=== PATIENT | female | born 1960 | race Two or more races ===

== ENCOUNTER 2017-02-18 09:54 | Emergency (ER) | payer SELFPAY ==
[~2017-02-18] VITALS: Ht 160 cm; Wt 95.3 kg
[2017-02-18 10:32] VITALS: BP 146/92
[2017-02-18] MEDS ORDERED: cefTRIAXone SOD 1,000 MG VL IM ONE (10:45)
[2017-02-18] MEDS ORDERED: TETANUS-DIPTH-ACEL PERTUSSIS 0.5ML SYRG IM ONE (10:45)
[2017-02-18] MEDS ORDERED: HYDROcodone-ACET 10/325MG TAB PO ONE (11:00)
[2017-02-18] MEDS ORDERED: NEOMYCIN-BACITRACIN-POLYM UNITDOSE PKG TOP OINT TOP ONE (12:00)
== END 2017-02-18 12:08 | disposition home or self-care (01) ==
LOC: ER 09:54
DX: S61.230A Puncture wound without foreign body of right index finger without damage to nail, initial encounter (principal); S60.221A Contusion of right hand, initial encounter; Z23 Encounter for immunization; W55.32XA Struck by other hoof stock, initial encounter; Y99.8 Other external cause status; Y93.89 Activity, other specified; Y92.89 Other specified places as the place of occurrence of the external cause
CPT/HCPCS: 73130; 90471; 90715; 96372; 99284; J0696

== ENCOUNTER 2017-02-19 07:53 | Emergency (ER) | payer SELFPAY ==
[~2017-02-19] VITALS: Ht 160 cm; Wt 95.3 kg
[2017-02-19 08:06] VITALS: BP 127/78
[2017-02-19] MEDS ORDERED: cefTRIAXone SOD 1,000 MG VL ONE (08:29)
[2017-02-19] MEDS ORDERED: cefTRIAXone SOD 1,000 MG VL IM ONE (08:30)
== END 2017-02-19 08:57 | disposition home or self-care (01) ==
LOC: ER 07:53
DX: S61.239D Puncture wound without foreign body of unspecified finger without damage to nail, subsequent encounter (principal); S60.00XD Contusion of unspecified finger without damage to nail, subsequent encounter
CPT/HCPCS: 96372; 99283; J0696

== ENCOUNTER 2025-04-21 08:14 | Emergency (ER) | payer OTHER, MEDICAID ==
[~2025-04-21] VITALS: Ht 160 cm; Wt 87.0 kg
--- NOTE | 2025-04-21 08:43 | ED.PDOC ---
History of Present Illness HPI Comments A 65 YEAR OLD FEMALE PRESENTS TO THE ED WITH COMPLAINT OF BODY PAIN. PATIENT STATES THAT SHE HAS BODY PAIN, A HEADACHE, ABDOMEN CRAMPS, AND NAUSEA. PATIENT REPORTS HER PAIN A /10. PATIENT IS NOT ACTIVELY VOMITING IN TRIAGE. PT STATES HER MAJOR C/O IS HEADACHE WITH PRESSURE FOR 3 DAYS. PATIENT DENIES FEVER, CHILLS, SHORTNESS OF BREATH, CHEST PAIN, VOMITING, DIARRHEA OR OTHER COMPLAINTS. NO OTHER SYMPTOMS OR MODIFYING FACTORS AT THIS TIME. PATIENT IS ALERT, ORIENTED X 4, AND HAS STEADY GAIT. NO OTHER SYMPTOMS REPORTED AT THIS TIME OF CARE. Chief Complaint: Body Pain Time Seen by MD: 08:31 Primary Care Provider: MARTHA RIVER Reviewed Notes: Nurses Notes, Medications, Allergies Allergies: Coded Allergies: NO KNOWN ALLERGIES (Unverified , 02/19/17) Home Meds Active Scripts Levofloxacin Hemihydrate (LEVAQUIN 500 MG) 500 Mg Tab, 1 TAB PO DAILY, #10 TAB Prov:NITIN DAVIS 04/21/25 Omeprazole (Prilosec Susp (For Gt)) 20 Mg Ss, 40 MG PO DAILY, #20 TAB Prov:NITIN DAVIS 04/21/25 Acetaminophen (Tylenol 8 Hour Arthritis) 650 Mg Tab, 650 MG PO TID, #30 TAB Prov:NITIN DAVIS 04/21/25 Information Source: Patient Mode of Arrival: Ambulatory Severity: Mild, Moderate Timing: Days Duration: Since onset Prehospital treatment: None Medication Refill: For: Other (HEADACHE, NAUSEA AND EPIGASTRIC CRAMPS. 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 SALES REPRESENTATIVE History: No Pertinent ROUTE SALES REPRESENTATIVE History Family History Family History: Unknown Social History Smoker: Non-Smoker Alcohol: Denies ETOH Use Drugs: Denies Drug Use Lives In: Home Constitutional: reports: others (ANXIOUS); denies: chills, diaphoresis, fatigue, fever, malaise, sweats, weakness EENTM: reports: nose congestion; denies: blurred vision, double vision, ear bleeding, ear discharge, ear drainage, ear pain, ear ringing, eye pain, eye redness, hearing loss, mouth pain, mouth swelling, nasal discharge, nose bleeding, nose pain, photophobia, tearing, throat pain, throat swelling, voice changes, others Respiratory: denies: cough, hemoptysis, orthopnea, SOB at rest, shortness of breath, SOB with excertion, stridor, wheezing, others Cardiovascular: denies: chest pain, dizzy spells, diaphoresis, Dyspnea on exertion, edema, irregular heart beat, left arm pain, lightheadedness, palpitations, PND, syncope, others Gastrointestinal: reports: abdominal pain; denies: abdomen distended, blood streaked bowels, constipated, diarrhea, dysphagia, difficulty swallowing, hematemesis, melena, nausea, poor appetite, poor fluid intake, rectal bleeding, rectal pain, vomiting, others Genitourinary: denies: abnormal vagina bleeding, burning, dyspareunia, dysuria, flank pain, frequency, hematuria, incontinence, pain, , vagina discharge, urgency, others Neurological: reports: headache; denies: dizziness, fainting, left sided num bness, left sided weakness, numbness, paresthesia, pre-existing deficit, right sided numbness, right sided weakness, seizure, speech problems, tingling, tremors, weakness, others Musculoskeletal: denies: back pain, gout, joint pain, joint swelling, muscle pain, muscle stiffness, neck pain, others Integumetry: denies: bruises, change in color, change in hair/nails, dryness, laceration, lesions, lumps, rash, wounds, others Allergic/Immunocompromised: denies: Difficulty Healing, Frequent Infections, Hives, Itching, others Hematologic/Lymphatic: denies: anemia, blood clots, easy bleeding, easy bruising, swollen glands, others Endocrine: denies: excessive hunger, excessive sweating, excessive thirst, excessive urination, flushing, intolerance to cold, intolerance to heat, unexplained weight gain, unexplained weight loss, others Psychiatric: reports: anxiety; denies: bipolar disorder, depression, hopeless, panic disorder, schizophrenia, sleepless, suicidal, others All Other Systems: Reviewed and Negative Physical Exam General Appearance: Mild Distress, Other (ANXIOUS ) HEENT: Normal ENT Inspection, PERRL/EOMI, Pharynx Normal, Sinuses (TENDERNESS ON RIGHT MAXILLARY SINUES WITH POST NASAL DRIP. ), TMs Normal Neck: Full Range of Motion, Non-Tender, Normal, Normal Inspection Respiratory: Chest Non-Tender, Lungs Clear, No Accessory Muscle Use, No Respiratory Distress, Normal Breath Sounds Cardiovascular: No Edema, No JVD, No Murmur, No Gallop, Normal Peripheral Pulses, Regular Rate/Rhythm Breast Exam: Deferred Gastrointestinal: No Organomegaly, Non Tender, No Pulsatile Mass, Normal Bowel Sounds, Soft Genitalia: Deferred Pelvic: Deferred Rectal: Deferred Extremities: No calf tenderness, Normal capillary refill, Normal inspection, Normal range of motion, Non-tender, No pedal edema Musculoskeletal : Apperance: Normal Neurologic: Alert, 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 Was a procedure done?: No Differential Dx Considerations may include: ACUTE SINUSITIS, SINUSES HEADACHE, BRAIN MASS, UTI X-Ray, Labs, Meds, VS Vital Signs Date Time Temp Pulse Resp B/P (MAP) Pulse Ox O2 Delivery O2 Flow Rate FiO2 04/21/25 08:22 98.9 98 18 122/75 98 98.9 Lab Test 04/21/25 09:00 04/21/25 08:39 Range/Units White Blood Count 11.9 H 4.4-10.8 10^3/uL Red Blood Count 4.60 4.0-5.20 10^6/uL Hemoglobin 13.9 12.2-16.2 g/dL Hematocrit 41.4 36.0-46.0 % Mean Corpuscular Volume 90.0 80.0-100.0 fL Mean Corpuscular Hemoglobin 30.2 28.0-32.0 pg Mean Corpuscular Hemoglobin Concent 33.6 32.0-36.0 g/dL Red Cell Distribution Width 13.7 11.8-14.3 % Platelet Count 220 140-450 10^3/uL Mean Platelet Volume 9.5 6.9-10.8 fL Neutrophils (%) (Auto) 87.2 H 37.0-80.0 % Lymphocytes (%) (Auto) 4.4 L 10.0-50.0 % Monocytes (%) (Auto) 8.1 0.0-12.0 % Eosinophils (%) (Auto) 0.0 0.0-7.0 % Basophils (%) (Auto) 0.3 0.0-2.0 % Neutrophils # (Auto) 10.3 H 1.6-8.6 10 ^3/uL Lymphocytes # (Auto) 0.5 0.4-5.4 10 ^3/uL Monocytes # (Auto) 1.0 0-1.3 10 ^3/uL Eosinophils # (Auto) 0 0-0.8 10 ^3/uL Basophils # (Auto) 0 0-0.2 10 ^3/uL Nucleated Red Blood Cells 0.0 % Sodium Level 137 136-145 mmol/L Potassium Level 3.6 3.5-5.1 mmol/L Chloride Level 103 98-107 mmol/L Carbon Dioxide Level 23 20-31 mmol/L Anion Gap 11 5-15 Blood Urea Nitrogen 11 9-23 mg/dL Creatinine 0.75 0.550-1.02 mg/dL Glomerular Filtration Rate Calc 88 >90 mL/min BUN/Creatinine Ratio 14.7 10.0-20.0 Serum Glucose 139 H 74-106 mg/dL Calcium Level 9.4 8.7-10.4 mg/dL Total Bilirubin 1.0 0.2-1.0 mg/dL Aspartate Amino Transferase (AST) 57 H 13-40 U/L Alanine Aminotransferase (ALT) 75 H 7-40 U/L Alkaline Phosphatase 168 H 46-116 U/L Troponin I High Sensitivity < 3 L </=34 ng/L Total Protein 7.0 5.7-8.2 g/dL Albumin 4.4 3.2-4.8 g/dL Lipase 39 12-53 U/L Urine Color Light-yellow Yellow Urine Clarity Clear Clear Urine pH 5.5 5.0-9.0 Urine Specific Roby 1.030 1.001-1.035 Urine Protein Negative Negative Urine Ketones 2+ H Negative Urine Blood 2+ H Negative /uL Urine Nitrite 2+ H Negative Urine Bilirubin Negative Negative Urine Urobilinogen Normal Negative mg/dL Urine Leukocyte Esterase 1+ Negative /uL Urine RBC 4 0 - 4 /hpf Urine Microscopic WBC 25 H 0-5 /HPF Urine Squamous Epithelial Cells Few <5 /hpf Urine Bacteria Few H None Seen /hpf Urine Mucus Few None Seen Urine Glucose 4+ H Normal mg/dL Current Medications Medications (Trade) Dose Ordered Sig/Araceli Route Start Time Stop Time Status Last Admin Ketorolac Tromethamine (Toradol Injection) 60 mg ONCE ONCE IM 04/21/25 11:00 04/21/25 11:01 DC 04/21/25 11:02 PATIENT: CARLOTA SAPPCCT: [id number]: [id number] : 1960 LOC: ER ROOM / BED: / AGE / SEX: 65 / F ADM STATUS: REG ER SERVICE ORDERING PHYSICIAN: NITIN DAVIS PROCEDURE(s): HWOCT - HEAD WITHOUT CONTRAST REASON: HEADACHE ORDER NUMBER(s): [id number], ACCESSION NUMBER(s): [id number] EXAM: CT HEAD WITHOUT CONTRAST HISTORY: HEADACHE 65-year-old female with severe headache for 3 days, history of hypertension. COMPARISON: None TECHNIQUE: Noncontrast axial CT images of the head were performed. Sagittal and coronal reformatted images were obtained. This CT exam was performed using 1 or more of the following dose reduction techniques: Automated exposure control, adjustment of the mA and/or kv according to patient size, or the use of iterative reconstruction techniques. Radiation Dose: CTDI volume is 48.78 mGy. Dose-length product is 780.49 mGy*cm FINDINGS: No intracranial hemorrhage, mass, midline shift, hydrocephalus, or evidence of acute large vessel infarct. There is mild mucosal thickening of the left ethmoid air cells. The bilateral mastoid air cells and middle ear spaces are clear. No cranial fracture or scalp edema. IMPRESSION: 1. No acute intracranial process. 2. Mild left ethmoid sinus disease. ATED BY: MONTSE FERRELL MD DICTATED DATE/TIME: 04/21/25924 SIGNED BY: MONTSE FERRELL MD SIGNED DATE/TIME: 04/21/25924 CC: X-Ray, Labs, Meds, VS Comment EXTERNAL MEDICAL RECORDS REVIEWED: [NONE] INDEPENDENT HISTORIANS: [NONE] SOCIAL DETERMINANTS OF HEALTH: [NONE] LABS ORDERED: NONE REVIEWED AND INTERPRETED RESULTS: NONE IMAGING ORDERED: HEAD CT TREATMENTS ORDERED: TORADOL 60MG IM PROCEDURES PERFORMED: NONE CRITICAL CARE TIME: NONE I HAVE DISCUSSED THE PATIENT WITH THE ATTENDING PHYSICIAN DR. HARRIS AND HE AGREES WITH THE PATIENT'S PLAN OF CARE AND DISPOSITION. BASED ON HISTORY OF PRESENT ILLNESS, AND PHYSICAL EXAM, PATIENT WILL BE DISCHARGED HOME. DISCUSSED PLAN FOR DISCHARGE HOME WITH RX [LEVAQUIN, TYLENOL AND PRILOSEC]. MEDICATION WARNINGS GIVEN. SHARED DECISION MAKING: DISCUSSED WITH PATIENT THAT THEIR WORKUP WAS NORMAL. PATIENT INSTRUCTED TO FOLLOW UP WITH PRIMARY CARE PROVIDER IN 1-2 DAYS FOR RE- EVALUATION OF SYMPTOMS. PATIENT VERBALIZES UNDERSTANDING TO RETURN TO ED FOR NEW OR WORSENING SYMPTOMS OR IF FOLLOW UP WITH PCP CANNOT BE OBTAINED. PATIENT FEELS COMFORTABLE GOING HOME AT THIS TIME. ALL QUESTIONS ADDRESSED AT TIME OF DISCHARGE. Time of 1ST Reevaluation: 11:20 Reevaluation 1ST: Improved Patient Education/Counseling: Diagnosis, Treatment, Need For Follow Up Family Education/Counseling: Diagnosis, Treatment, No Family Present Medical Screening: No EMC Exist At This Time SEPSIS Sepsis Screen Date sepsis recognized/suspect: Apr 21, 2025 Time Sepsis recognized/suspect: 821 Recent Procedure: No On Antibiotic Therapy: No Respiratory Rate >20: No Heart Rate >90: No Temp<36 C (96.8 F) or >38.3 C: No SBP <90 or MAP <65 mmHG: No New Acute Mental Status Change: No Is the patient on CPAP, BIPAP,: No Physician Orders Head Without Contrast (04/21/25 08:39) Vital Signs Date Time Temp Pulse Resp B/P (MAP) Pulse Ox O2 Delivery O2 Flow Rate FiO2 04/21/25 08:22 98.9 98 18 122/75 98 98.9 Laboratory Tests Test 04/21/25 09:00 White Blood Count 11.9 10^3/uL (4.4-10.8) H Medications Medications Dose Ordered Sig/Araceli Route Start Time Stop Time Status Last Admin Dose Admin Ketorolac Tromethamine 60 mg ONCE ONCE IM 04/21/25 11:00 04/21/25 11:01 DC 04/21/25 11:02 Departure 1 Departure Time of Disposition: 11:20 Impression: Primary Impression: Acute sinusitis Qualified Codes: J01.20 - Acute ethmoidal sinusitis, unspecified Additional Impression: Acute cystitis Qualified Codes: N30.00 - Acute cystitis without hematuria Disposition: 01 HOME / SELF CARE / HOMELESS Condition: Stable Additional Instructions: F/U PCP IN 2 DAYS RECHECK. IF CONDITION BECOME WORSE, RETURN TO ED [place]. e-Prescriptions Levofloxacin Hemihydrate (LEVAQUIN 500 MG) 500 Mg Tab 1 TAB PO DAILY, #10 TAB Prov: NITIN DAVIS 04/21/25 Omeprazole (Prilosec Susp (For Gt)) 20 Mg Ss 40 MG PO DAILY, #20 TAB Prov: NITIN DAVIS 04/21/25 Acetaminophen (Tylenol 8 Hour Arthritis) 650 Mg Tab 650 MG PO TID, #30 TAB Prov: NITIN DAVIS 04/21/25 Discharged With: Self Critical Care Note Critical Care Time?: No Stability Stability form required: No I personally scribed for NITIN DAVIS ([email or web address]) on 04/21/25 at 08:43. Electronically submitted by Freddie Potter ([email or web address]). I personally scribed for NITIN DAVIS ([email or web address]) on 04/21/25 at 11:03. Electronically submitted by Freddie Potter [email or web address]). NITIN DAVIS Apr 21, 2025 08:43
[2025-04-21 09:09] LABS: Hematocrit 41.4 % (36.0-46.0); Hemoglobin 13.9 g/dL (12.2-16.2); Mean Corpuscular Hemoglobin 30.2 pg (28.0-32.0); Mean Corpuscular Volume 90.0 fL (80.0-100.0); Nucleated Red Blood Cells % 0.0 %
--- NOTE | 2025-04-21 09:27 | DVH ---
EXAM: CT HEAD WITHOUT CONTRAST HISTORY: HEADACHE 65-year-old female with severe headache for 3 days, history of hypertension. COMPARISON: None TECHNIQUE: Noncontrast axial CT images of the head were performed. Sagittal and coronal reformatted i mages were obtained. This CT exam was performed using 1 or more of the following dose reduction techn iques: Automated exposure control, adjustment of the mA and/or kv according to patient size, or the u se of iterative reconstruction techniques. Radiation Dose: CTDI volume is 48.78 mGy. Dose-length product is 780.49 mGy*cm FINDINGS: No intracranial hemorrhage, mass, midline shift, hydrocephalus, or evidence of acute large vessel inf arct. There is mild mucosal thickening of the left ethmoid air cells. The bilateral mastoid air cells and middle ear spaces are clear. No cranial fracture or scalp edema. IMPRESSION: 1. No acute intracranial process. 2. Mild left ethmoid sinus disease.
[2025-04-21 09:30] LABS: Alanine Aminotransferase 75 U/L (7-40); Albumin 4.4 g/dL (3.2-4.8); Alkaline Phosphatase 168 U/L (46-116); Anion Gap 11 (5-15); BUN/Creatinine Ratio 14.7 (10.0-20.0); Blood Urea Nitrogen 11 mg/dL (9-23); Calcium 9.4 mg/dL (8.7-10.4); Carbon Dioxide 23 mmol/L (20-31); Chloride 103 mmol/L (98-107); Glucose 139 mg/dL (74-106); Potassium 3.6 mmol/L (3.5-5.1); Sodium 137 mmol/L (136-145); Total Protein 7.0 g/dL (5.7-8.2)
[2025-04-21 09:31] LABS: Bilirubin, Total 1.0 mg/dL (0.2-1.0)
[2025-04-21 09:54] LABS: Lipase 39 U/L (12-53)
[2025-04-21 10:39] LABS: Urine Protein, UAD Negative (Negative)
[2025-04-21] MEDS ORDERED: LEVO500T91 PO (11:01)
[2025-04-21] MEDS ORDERED: ACET-1080 PO (11:01)
[2025-04-21] MEDS ORDERED: OME20GT PO (11:01)
[2025-04-21] MEDS: KETOROLAC TROMETH 60MG/2ML VIAL IM ONE (11:02)
[2025-04-21 11:10] VITALS: BP 129/46; PULSE 98; RESP 19; TEMP 99.4; O2SAT 99
== END 2025-04-21 11:12 | disposition home or self-care (01) ==
LOC: ER 08:14
DX: J01.90 Acute sinusitis, unspecified (principal); N30.00 Acute cystitis without hematuria; F41.9 Anxiety disorder, unspecified; E11.9 Type 2 diabetes mellitus without complications; I10 Essential (primary) hypertension; E78.5 Hyperlipidemia, unspecified; Z90.49 Acquired absence of other specified parts of digestive tract; Z79.899 Other long term (current) drug therapy
CPT/HCPCS: 36415; 70450; 80053; 81001; 82947; 83690; 84484; 85025; 96372; 99285; J1885

== ENCOUNTER 2025-04-21 21:11 | Emergency (ER) | payer OTHER, MEDICAID ==
[~2025-04-21] VITALS: Ht 160 cm; Wt 87.0 kg
[~2025-04-21 21:11] MED LIST: ACET-1080 PO; LEVO500T91 PO; OME20GT PO
[2025-04-21 21:43] VITALS: TEMP 98.6
--- NOTE | 2025-04-21 21:58 | ED.PDOC ---
GI ASSESSMENT HPI Comments PATIENT RETURNS TO ER FROM DISCHARGE THIS MORNING WITH C/C OF HEADACHE AFTER DIAGNOSIS OF SINUSITIS. PATIENT HAS BARELY STARTED MEDICATION THIS AFTERNOON. PATIENT ALSO REPORTS LOWER MID ABDOMINAL PAIN 6/10 ON PAIN SCALE RELATED SYMPTOMS OF NAUSEA AND VOMITING. DENIES CHEST PAIN, SHORTNESS OF BREATH, DIFFICULTY BREATHING. NOTES NO DIARRHEA OR RECENT TRAVEL. Chief Complaint: Headache Time Seen by MD: 21:19 Primary Care Provider: [place] Reviewed Notes: Nurses Notes, Medications, Allergies Allergies: Coded Allergies: NO KNOWN ALLERGIES (Unverified , 02/19/17) Home Meds Active Scripts Levofloxacin Hemihydrate (LEVAQUIN 500 MG) 500 Mg Tab, 1 TAB PO DAILY, #10 TAB Prov:NITIN DAVIS 04/21/25 Omeprazole (Prilosec Susp (For Gt)) 20 Mg Ss, 40 MG PO DAILY, #20 TAB Prov:NITIN DAVIS 04/21/25 Acetaminophen (Tylenol 8 Hour Arthritis) 650 Mg Tab, 650 MG PO TID, #30 TAB Prov:NITIN DAVIS 04/21/25 Information Source: Patient, Relative (GrandChild) Mode of Arrival: Ambulatory Past Medical History PAST MEDICAL HISTORY: Anxiety, DM, High Lipids, HTN Surgical History: Cholecystectomy 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 PURCHASING AND FISCAL CLERK History Family History Family History: Unknown Social History Smoker: Non-Smoker Alcohol: Denies ETOH Use Drugs: Denies Drug Use Lives In: Home Constitutional: reports: chills; denies: diaphoresis, fatigue, fever, malaise, sweats, weakness, others EENTM: denies: blurred vision, double vision, ear bleeding, ear discharge, ear drainage, ear pain, ear ringing, eye pain, eye redness, hearing loss, mouth pain, mouth swelling, nasal discharge, nose bleeding, nose congestion, nose pain, photophobia, tearing, throat pain, throat swelling, voice changes, others Respiratory: denies: cough, hemoptysis, orthopnea, SOB at rest, shortness of breath, SOB with excertion, stridor, wheezing, others Cardiovascular: denies: chest pain, dizzy spells, diaphoresis, Dyspnea on exertion, edema, irregular heart beat, left arm pain, lightheadedness, palpitations, PND, syncope, others Gastrointestinal: reports: abdominal pain, nausea, vomiting; denies: abdomen distended, blood streaked bowels, constipated, diarrhea, dysphagia, difficulty swallowing, hematemesis, melena, poor appetite, poor fluid intake, rectal bleeding, rectal pain, others Genitourinary: denies: abnormal vagina bleeding, burning, dyspareunia, dysuria, flank pain, frequency, hematuria, incontinence, pain, , vagina discharge, urgency, others Neurological: reports: headache; denies: dizziness, fainting, left sided numbness, left sided weakness, numbness, paresthesia, pre-existing deficit, right sided numbness, right sided weakness, seizure, speech problems, tingling, tremors, weakness, others Musculoskeletal: denies: back pain, gout, joint pain, joint swelling, muscle pain, muscle stiffness, neck pain, others Integumetry: denies: bruises, change in color, change in hair/nails, dryness, laceration, lesions, lumps, rash, wounds, others Allergic/Immunocompromised: denies: Difficulty Healing, Frequent Infections, Hives, Itching, others Hematologic/Lymphatic: denies: anemia, blood clots, easy bleeding, easy bruising, swollen glands, others Endocrine: denies: excessive hunger, excessive sweating, excessive thirst, excessive urination, flushing, intolerance to cold, intolerance to heat, unexplained weight gain, unexplained weight loss, others Psychiatric: denies: anxiety, bipolar disorder, depression, hopeless, panic disorder, schizophrenia, sleepless, suicidal, others Physical Exam General Appearance: No Apparent Distress, Normal HEENT: Pharynx Normal, Sinuses (ETHMOID TENDERNESS ON PALPATION), TMs Normal Neck: Full Range of Motion, Non-Tender Respiratory: Lungs Clear, No Respiratory Distress, Normal Breath Sounds Cardiovascular: No Edema, No JVD, No Murmur, No Gallop, Normal Peripheral Pulses, Regular Rate/Rhythm Breast Exam: Deferred Gastrointestinal: Distended, No Organomegaly, No Pulsatile Mass, Normal Bowel Sounds, Tenderness (LOWER MID RIGHT AND LEFT ABDOMINAL QUADRANT) Genitalia: Deferred Pelvic: Deferred Rectal: Deferred Extremities: Normal range of motion, No pedal edema Musculoskeletal : Apperance: Normal Neurologic: Alert, tree 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 Was a procedure done?: No GI differential Dx Differential Diagnosis: Appendicitis, Cholecystitis, Constipation, Diverticular disease, Gastroenteritis, Inflammatory BD, Ischemic Bowel, UTI, Electrolyte Imbalance, Food Poisoning, Bacterial, Viral X-Ray, Labs, Meds, VS Vital Signs Date Time Temp Pulse Resp B/P (MAP) Pulse Ox O2 Delivery O2 Flow Rate FiO2 04/21/25 23:47 81 19 109/63 (78) 97 04/21/25 22:24 90 18 100 Room Air 04/21/25 21:43 98.6 90 18 92/52 (65) 100 98.6 04/21/25 21:12 99.2 97 18 111/63 99 99.2 Lab Test 04/21/25 21:50 Range/Units White Blood Count 13.7 H 4.4-10.8 10^3/uL Red Blood Count 4.42 4.0-5.20 10^6/uL Hemoglobin 13.4 12.2-16.2 g/dL Hematocrit 39.1 36.0-46.0 % Mean Corpuscular Volume 88.4 80.0-100.0 fL Mean Corpuscular Hemoglobin 30.3 28.0-32.0 pg Mean Corpuscular Hemoglobin Concent 34.2 32.0-36.0 g/dL Red Cell Distribution Width 13.6 11.8-14.3 % Platelet Count 212 140-450 10^3/uL Mean Platelet Volume 9.7 6.9-10.8 fL Neutrophils (%) (Auto) 84.5 H 37.0-80.0 % Lymphocytes (%) (Auto) 4.8 L 10.0-50.0 % Monocytes (%) (Auto) 10.4 0.0-12.0 % Eosinophils (%) (Auto) 0.1 0.0-7.0 % Basophils (%) (Auto) 0.2 0.0-2.0 % Neutrophils # (Auto) 11.6 H 1.6-8.6 10 ^3/uL Lymphocytes # (Auto) 0.7 0.4-5.4 10 ^3/uL Monocytes # (Auto) 1.4 H 0-1.3 10 ^3/uL Eosinophils # (Auto) 0 0-0.8 10 ^3/uL Basophils # (Auto) 0 0-0.2 10 ^3/uL Nucleated Red Blood Cells 0.0 % Sodium Level 135 L 136-145 mmol/L Potassium Level 3.6 3.5-5.1 mmol/L Chloride Level 104 98-107 mmol/L Carbon Dioxide Level 20 20-31 mmol/L Anion Gap 11 5-15 Blood Urea Nitrogen 15 9-23 mg/dL Creatinine 0.91 0.550-1.02 mg/dL Glomerular Filtration Rate Calc 70 >90 mL/min BUN/Creatinine Ratio 16.5 10.0-20.0 Serum Glucose 184 H 74-106 mg/dL Calcium Level 8.7 8.7-10.4 mg/dL Total Bilirubin 0.8 0.2-1.0 mg/dL Aspartate Amino Transferase (AST) 121 H 13-40 U/L Alanine Aminotransferase (ALT) 141 H 7-40 U/L Alkaline Phosphatase 198 H 46-116 U/L Total Protein 6.5 5.7-8.2 g/dL Albumin 4.1 3.2-4.8 g/dL Lipase 35 12-53 U/L Current Medications Medications (Trade) Dose Ordered Sig/Araceli Route Start Time Stop Time Status Last Admin Sodium Chloride 1,000 ml @ 1,000 mls/hr Q1H ONCE IV 04/21/25 22:00 04/21/25 22:59 DC 04/21/25 22:24 Ketorolac Tromethamine (Toradol Injection) 30 mg ONCE ONCE IV 04/21/25 22:00 04/21/25 22:01 DC 04/21/25 22:27 Famotidine (Pepcid Injection) 20 mg ONCE ONCE IV 04/21/25 22:00 04/21/25 22:01 DC 04/21/25 22:27 Ondansetron HCl (Zofran) 4 mg ONCE ONCE IV 04/21/25 22:00 04/21/25 22:01 DC 04/21/25 22:27 X-Ray, Labs, Meds, VS Comment CT abdomen shows no acute findings, shows chronic diverticulosis without diverticulitis. CBC shows white count 13 slightly elevated from earlier today. However patient currently on antibiotics for sinusitis. CMP with elevated liver enzymes. Lipase within normal limits. Patient unable to obtain a urine however patient currently on Levaquin. Patient was given Toradol 30 mg IV push, Decadron 10 mg IV push, Pepcid 20 mg IV push and 1 L of normal saline. Patient reports improvement in pain and headache and abdominal pain is requesting discharge at this time. Advised to continue the antibiotics as prescribed. Follow up with your PCP in 2-3 days, if unable return to the ER.. We discussed ER return precautions patient indicates understanding and agrees with discharge plan of care Time of 1ST Reevaluation: 21:35 Reevaluation 1ST: Unchanged Time of 2ND Reevaluation: 00:36 Reevaluation 2ND: Improved Patient Education/Counseling: Diagnosis, Treatment, Prognosis, Need For Follow Up Family Education/Counseling: Diagnosis, Treatment, Prognosis, Need For Follow Up SEPSIS Sepsis Screen Date sepsis recognized/suspect: Apr 21, 2025 Time Sepsis recognized/suspect: 2116 Recent Procedure: No On Antibiotic Therapy: No Respiratory Rate >20: No Heart Rate >90: No Temp<36 C (96.8 F) or >38.3 C: No SBP <90 or MAP <65 mmHG: No New Acute Mental Status Change: No Is the patient on CPAP, BIPAP,: No Physician Orders Ct Ab Pel Wo Con-No Oral Or Iv (04/21/25 21:46) Urinalysis (04/21/25 21:49) Vital Signs Date Time Temp Pulse Resp B/P (MAP) Pulse Ox O2 Delivery O2 Flow Rate FiO2 04/21/25 23:47 81 19 109/63 (78) 97 04/21/25 22:24 90 18 100 Room Air 04/21/25 21:43 98.6 90 18 92/52 (65) 100 98.6 04/21/25 21:12 99.2 97 18 111/63 99 99.2 Laboratory Tests Test 04/21/25 21:50 White Blood Count 13.7 10^3/uL (4.4-10.8) H Medications Medications Dose Ordered Sig/Araceli Route Start Time Stop Time Status Last Admin Dose Admin Famotidine 20 mg ONCE ONCE IV 04/21/25 22:00 04/21/25 22:01 DC 04/21/25 22:27 Ketorolac Tromethamine 30 mg ONCE ONCE IV 04/21/25 22:00 04/21/25 22:01 DC 04/21/25 22:27 Ondansetron HCl 4 mg ONCE ONCE IV 04/21/25 22:00 04/21/25 22:01 DC 04/21/25 22:27 Sodium Chloride 1,000 ml @ 1,000 mls/hr Q1H ONCE IV 04/21/25 22:00 04/21/25 22:59 DC 04/21/25 22:24 Departure 1 Departure Time of Disposition: 00:36 Impression: Primary Impression: Viral syndrome Disposition: 01 HOME / SELF CARE / HOMELESS Condition: Stable Discharged With: Relative (Sibling) Critical Care Note Critical Care Time?: No Stability Stability form required: ERNESTO Hart Apr 21, 2025 21:58
[2025-04-21] MEDS: MORPHINE SULFATE INJ 2 MG/ml SYRG IV ONE (22:13)
[2025-04-21 22:15] LABS: Hematocrit 39.1 % (36.0-46.0); Hemoglobin 13.4 g/dL (12.2-16.2); Mean Corpuscular Hemoglobin 30.3 pg (28.0-32.0); Mean Corpuscular Volume 88.4 fL (80.0-100.0); Nucleated Red Blood Cells % 0.0 %
[2025-04-21] MEDS: SODIUM CHLORIDE 0.9% 1,000 ML IV ONE (22:24)
[2025-04-21 22:26] LABS: Albumin 4.1 g/dL (3.2-4.8); Anion Gap 11 (5-15); BUN/Creatinine Ratio 16.5 (10.0-20.0); Bilirubin, Total 0.8 mg/dL (0.2-1.0); Blood Urea Nitrogen 15 mg/dL (9-23); Chloride 104 mmol/L (98-107); Lipase 35 U/L (12-53); Potassium 3.6 mmol/L (3.5-5.1); Total Protein 6.5 g/dL (5.7-8.2)
[2025-04-21] MEDS: KETOROLAC TROMETH 30 MG/ML 1ML VIAL IV ONE (22:27)
[2025-04-21] MEDS: FAMOTIDINE (10MG/ML) 2ML VL IV ONE (22:27)
[2025-04-21] MEDS: ONDANSETRON HCL 4 MG/2 ML VIAL IV ONE (22:27)
[2025-04-21 22:36] LABS: Alanine Aminotransferase 141 U/L (7-40); Alkaline Phosphatase 198 U/L (46-116); Calcium 8.7 mg/dL (8.7-10.4); Carbon Dioxide 20 mmol/L (20-31); Glucose 184 mg/dL (74-106); Sodium 135 mmol/L (136-145)
[2025-04-21 23:47] VITALS: BP 109/63; PULSE 81; RESP 19; O2SAT 97
--- NOTE | 2025-04-21 23:48 | DVH ---
COMPUTERIZED TOMOGRAPHY ABDOMEN AND PELVIS WITHOUT CONTRAST REASON FOR EXAM: abd pain COMPARISON: None TECHNIQUE: Spiral scans were acquired from the diaphragm to the symphysis pubis without intravenous c ontrast administration. 2-D coronal and sagittal reformatted images were provided. Radiation optimiza tion: All CT scans at this facility use at least one of these dose optimization techniques: Automated exposure control mA and/or kV adjustment per patient size (includes targeted exams where dose is mat ched to clinical indication) or iterative reconstruction. RADIATION DOSE: CTDI: 13 mGy DLP: 817 mGy-cm FINDINGS: The visualized lung bases are grossly clear. There is no pleural effusion. There is no pericardial ef fusion. The spleen is not enlarged. The liver is normal in size and contour. Evaluation of the abdominal or fidel is suboptimal in the absence of intravenous contrast. The gallbladder is surgically absent. Une nhanced appearance of the pancreas is grossly unremarkable. The adrenal glands are normal. The kidney s are similar in size. There is no hydronephrosis of either kidney. No renal, ureteral, or bladder ca lculus is identified. The urinary bladder is unremarkable. The uterus is absent. The ovaries are not seen. There is no free fluid in the abdomen or pelvis. There is descending and sigmoid diverticulosis without evidence of diverticulitis. The colonic stool burden is small. The appendix is not seen. T here is no inflammatory change about the cecum to suggest acute appendicitis. There is no pathologic distention of the small bowel to suggest obstruction. There is no abdominal aortic aneurysm. No patho logic lymphadenopathy is identified by size criteria. No acute osseous abnormality is identified. IMPRESSION: No finding to explain the patient's abdominal pain. Descending and sigmoid diverticulosis without evidence of diverticulitis.
== END 2025-04-22 00:59 | disposition home or self-care (01) ==
LOC: ER 21:11
DX: B34.9 Viral infection, unspecified (principal); I10 Essential (primary) hypertension; E11.9 Type 2 diabetes mellitus without complications; F41.9 Anxiety disorder, unspecified; F32.A Depression, unspecified; Z90.49 Acquired absence of other specified parts of digestive tract; Z79.899 Other long term (current) drug therapy
CPT/HCPCS: 36415; 74176; 80053; 83690; 85025; 96361; 96374; 96375; 99285; J1885; J2405; J3490; J7030